=== PATIENT | female | born 1955 | race Caucasian/White ===

== ENCOUNTER 2019-10-12 11:08 | Emergency (ER) | payer SELFPAY ==
[~2019-10-12] VITALS: Ht 160 cm; Wt 47.5 kg
--- NOTE | 2019-10-12 11:32 | ED GU-Female ---
General Chief Complaint: - Urinary Stated Complaint: ABD/BACK PAIN Nursing Triage Note: c/o L lower abdomen pain with lower L flank pain x 3 or 4 days. denies n/v Nursing Sepsis Screen: No Definite Risk Source: patient, RN notes reviewed Exam Limitations: no limitations History of Present Illness Date Seen by Provider: Oct 12, 2019 Time Seen by Provider: 11:15 Initial Comments This patient is a 64-year-old female presents to the emergency department for left lower left back pain. Patient states when she might have a kidney infection. Patient states this pain has been going on for about 3-4 days. Denies fever denies nausea and vomiting. Has had issues like this in the past. Denies any heavy lifting. We will do medical evaluation treatment is needed. Timing/Duration: week Severity/Quality: mild, aching Location: left flank Radiation: none Activities at Onset: none Prior Genitourinary Problems: none Associated Symptoms: No denies symptoms, No abdominal pain, No diaphoresis, No dysuria, No fever/chills, No loss of bladder control; lower back pain; No lumps, No mass, No nausea/vomiting, No nocturia, No polyuria, No swelling, No syncope, No urinary frequency, No other Allergies and Home Medications Allergies Coded Allergies: codeine (Verified Allergy, Unknown, 10/12/19) Home Medications No Active Prescriptions or Reported Meds Patient Home Medication List Home Medication List Reviewed: Yes Review of Systems Review of Systems Constitutional: see HPI EENTM: No see HPI, No no symptoms reported, No ear discharge, No hearing loss, No ear pain, No blurred vision, No double vision, No eye pain, No tearing, No vision loss, No dental problems, No hoarseness, No mouth pain, No mouth swelling, No epistaxis, No nose congestion, No nose pain, No throat pain, No throat swelling, No other Respiratory: No no symptoms reported, No see HPI, No cough, No dyspnea on exertion, No hemoptysis, No orthopnea, No phlegm, No short of breath, No stridor, No wheezing, No other Cardiovascular: No no symptoms reported, No see HPI, No chest pain, No edema, No Hx of Intervention, No palpitations, No syncope, No vascular heart diseas, No other Gastrointestinal: No RUQ, No LUQ, No RLQ, No LLQ, No no symptoms reported, No see HPI, No abdominal pain, No constipation, No diarrhea, No dysphagia, No hematemesis, No heartburn, No jaundice, No loss of appetite, No melena, No nausea, No vomiting, No other Genitourinary: dysuria, flank pain : No Musculoskeletal: back pain Skin: No no symptoms reported, No see HPI, No change in color, No change in hair/nails, No dryness, No hx of skin cancer, No lesions, No lumps, No pruritus, No rash, No other Past Piynxji-Yqgquw-Ufbprs Hx Patient Social History Alcohol Use: Denies Use Recreational Drug Use: No Smoking Status: Current Everyday Smoker Type Used: Cigarettes Recent Foreign Travel: No Contact w/Someone Who Travel: No Recent Infectious Disease Expo: No Recent Hopitalizations: No Seasonal Allergies Seasonal Allergies: No Past Medical History Surgeries: Yes Hysterectomy Respiratory: No Cardiac: No Neurological: No Genitourinary: No Gastrointestinal: No Musculoskeletal: No Endocrine: No HEENT: No Cancer: No Psychosocial: No Integumentary: No Blood Disorders: No Physical Exam Vital Signs Vital Signs - First Documented 10/12/19 11:18 Temp 36.4 Pulse 111 Resp 18 B/P (MAP) 155/90 (111) Pulse Ox 98 Capillary Refill : Less Than 3 Seconds Height, Weight, BMI Height: '" Weight: lbs. oz. kg; 18.00 BMI Method: General Appearance: WD/WN, no apparent distress HEENT: PERRL/EOMI, normal ENT inspection, TMs normal, pharynx normal Neck: non-tender, full range of motion, supple, normal inspection Cardiovascular: normal peripheral pulses, regular rate, rhythm, no edema, no gallop, no JVD, no murmur Respiratory: chest non-tender, lungs clear, normal breath sounds, no respiratory distress, no accessory muscle use, respiratory distress Gastrointestinal: normal bowel sounds, non tender, soft, no organomegaly, no pulsatile mass Back: normal inspection, no CVA tenderness, no vertebral tenderness Extremities: normal range of motion, non-tender, normal inspection, no pedal edema, no calf tenderness, normal capillary refill Progress/Results/Core Measures Suspected Sepsis Recent Fever Within 48 Hours: No Infection Criteria Present: None New/Unexplained Altered Menta: No Sepsis Screen: No Definite Risk SIRS Temperature: Pulse: 111 Respiratory Rate: 18 Blood Pressure 155 /90 Mean: 111 Results/Orders Lab Results Laboratory Tests Test 10/12/19 11:17 Range/Units Urine Color DK YELLOW Urine Clarity SLT CLOUDY Urine pH 5.0 5-9 Urine Specific [place] >=1.030 1.016-1.022 Urine Protein 2+ H NEGATIVE Urine Glucose (UA) NEGATIVE NEGATIVE Urine Ketones 1+ H NEGATIVE Urine Nitrite NEGATIVE NEGATIVE Urine Bilirubin 2+ H NEGATIVE Urine Urobilinogen 1.0 < = 1.0 MG/DL Urine Leukocyte Esterase NEGATIVE NEGATIVE Urine RBC (Auto) 1+ H NEGATIVE Urine RBC 0-2 /HPF Urine WBC 0-2 /HPF Urine Squamous Epithelial Cells 0-2 /HPF Urine Crystals NONE /LPF Urine Bacteria MODERATE H /HPF Urine Casts PRESENT /LPF Urine Hyaline Casts 2-5 H /LPF Urine Mucus SMALL H /LPF Urine Culture Indicated YES My Orders Orders - KALEE BLUE MD Urinalysis (10/12/19 11:28) Urine Culture (10/12/19 11:17) Vital Signs/I&O 10/12/19 11:18 Temp 36.4 Pulse 111 Resp 18 B/P (MAP) 155/90 (111) Pulse Ox 98 Capillary Refill : Less Than 3 Seconds Blood Pressure Mean: 111 Progress Note : Time: 12:11 Progress Note This patient is a 64-year-old female complaining of low back pain. Negative urinalysis for anything acute however and had some microscopic changes. Patient's complains of back pain are nonspecific. 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 I did discuss at length about options and offered the patient a full medical screening exam including labs and further imaging if needed and IV fluids. Patient declines. Patient wishes just to take something for back pain and see how goes for couple days. Patient denies fever nausea vomiting diarrhea or constipation. Patient is to encourage by mouth fluids and alternate heat and ice as needed for low back pain. Low back stretching exercises as instructed. Take medications as instructed to try to follow up with primary care physician is symptoms failed to improve or worsen return to the emergency department for further evaluation. Departure Impression Primary Impression: Low back pain Disposition: 01 HOME, SELF-CARE Condition: Stable Departure-Patient Inst. Referrals: NO,LOCAL PHYSICIAN (PCP/Family) Primary Care Physician Patient Instructions: Low Back Pain (DC) Add. Discharge Instructions: Patient is to encourage by mouth fluids and alternate heat and ice as needed for low back pain. Low back stretching exercises as instructed. Take medications as instructed to try to follow up with primary care physician is symptoms failed to improve or worsen return to the emergency department for further evaluation. All discharge instructions reviewed with patient and/or family. Voiced understanding. Scripts Diclofenac Sodium (Diclofenac Sodium) 75 Mg Tablet. 75 MG PO BID for 10 Days, #20 TAB 0 Refills Prov: KALEE BLUE MD 10/12/19 KALEE BLUE MD Oct 12, 2019 11:32
--- OUTSIDE RECORDS SUMMARY | 2019-10-12 11:38 | XMS REPORT ---
Author Author Nicole STEVENS Organization [facility] Address [address] [place] [id number] Care Team Providers Care Editing Computer Publisher Name Role Phone JUAN STEVENS Unavailable PROBLEMS Unknown Problems ALLERGIES No Information ENCOUNTERS Encounter Location Date Diagnosis [facility] [address] [place] [id number] Sep [facility] [address] [facility] [id number] [address] [place] [id number] Feb, Dental examination Z01.20 [facility] [address] [facility] [id number] [address] [place] [id number] May, IMMUNIZATIONS No Known Immunizations SOCIAL HISTORY Never Assessed REASON FOR VISIT PLAN OF CARE VITAL SIGNS MEDICATIONS Unknown Medications RESULTS No Results PROCEDURES No Known procedures INSTRUCTIONS MEDICATIONS ADMINISTERED No Known Medications MEDICAL (GENERAL) HISTORY Type Description Date Medical History Hepatitis B (Previously) Surgical History Hysterectomy 1973
--- OUTSIDE RECORDS SUMMARY | 2019-10-12 11:38 | XMS REPORT ---
Author Nicole Zavala [facility] eClinicalWorks Address Unknown Phone Unavailable Care Team Providers Care Clinical Data Management Director Name Role Phone JOSELINE SCHNEIDER CP Unavailable Allergies, Adverse Reactions, Alerts Substance Reaction Event Type Codiene Info Not Available Non Drug Allergy Problems Problem Type Condition Code Onset Dates Condition Statu s Assessment Dental examination Z01.20 Active Medications Medication Code System Code Instructions Start Date End Date Status Dosage Amoxicillin [facility] [id number] 500 MG Orally 4 times daily 1 capsule Procedures Procedure Coding System Code Date INTRAORL-PERIAPICAL 1 FILM 53967 CPT-4 D0220 Feb 14, 2016 LTD ORAL EVALUATION - PROBLEM FOCUS CPT-4 D0140 Feb 14, 2016 Vital Signs Date/Time: Feb 14, 2016 Blood Pressure Diastolic 100 mmHg Blood Pressure Systolic 153 mmHg Results No Known Results Summary Purpose eClinicalWorks Submission
[2019-10-12 11:46] LABS: CLARITY,URINE SLT CLOUDY; COLOR,URINE DK YELLOW
[2019-10-12 11:47] LABS: GLUCOSE, URINE (UA) NEGATIVE (NEGATIVE); KETONES,URINE 1+ (NEGATIVE); NITRITE,URINE NEGATIVE (NEGATIVE); PROTEIN,URINE 2+ (NEGATIVE)
[2019-10-12 11:49] LABS: BACTERIA,URINE MODERATE /HPF; BILIRUBIN,URINE 2+ (NEGATIVE); LEUKOCYTE ESTERASE ,URINE NEGATIVE (NEGATIVE); RBC,URINE 0-2 /HPF; SQUAMOUS EPITHELIAL CELL,UR 0-2 /HPF; WBC,URINE 0-2 /HPF
[2019-10-12] MEDS ORDERED: DICL75TA2 PO (12:18)
[2019-10-12 12:29] VITALS: BP 155/90
[2019-10-15] MEDS ORDERED: METR500T PO (17:12)
== END 2019-10-12 12:30 | disposition home or self-care (01) ==
LOC: EDUNIT# 11:08 → ER FS 11:10
DX: M54.5 Low back pain (principal); F17.210 Nicotine dependence, cigarettes, uncomplicated; Z88.5 Allergy status to narcotic agent
CPT/HCPCS: 81000; 87088; 99282